=== PATIENT | female | born 1960 | race Caucasian/White ===

== ENCOUNTER 2017-09-07 14:57 | Emergency (ER) | payer OTHER, BC ==
[~2017-09-07] VITALS: Ht 152.4 cm; Wt 54.4 kg
[2017-09-07] MEDS ORDERED: ACETAMINOPHEN 325 MG TABLET. PO ONE (16:00)
--- NOTE | 2017-09-07 16:07 | RAD ---
PA and lateral chest radiographs 09/07/2017. Clinical History: Shortness of breath and chest pain.. PA and lateral digital radiographs of the chest were obtained. No previous studies are available for comparison. The cardiac and mediastinal silhouettes are within normal limits in size and configuration. No pulmonary infiltrate is seen. No pleural effusion or pneumothorax is noted. The osseous structures are grossly intact. Degenerative changes are seen involving the thoracic spine. Impression: No acute abnormality is seen.
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
[2017-09-07 17:39] VITALS: BP 154/97
== END 2017-09-07 18:01 | disposition home or self-care (01) ==
LOC: ER 14:57
DX: M25.511 Pain in right shoulder (principal); M25.551 Pain in right hip; M19.90 Unspecified osteoarthritis, unspecified site; Z88.8 Allergy status to other drugs, medicaments and biological substances; Z88.5 Allergy status to narcotic agent; Z88.2 Allergy status to sulfonamides; V43.52XA Car driver injured in collision with other type car in traffic accident, initial encounter; Y93.I9 Activity, other involving external motion; Y92.410 Unspecified street and highway as the place of occurrence of the external cause; Y99.8 Other external cause status
CPT/HCPCS: 70450; 71020; 72125; 73030; 73502; 99284-25